=== PATIENT | female | born 1990 | race African-American/Black ===

== ENCOUNTER 2024-11-12 05:01 | Emergency (ER) | payer MEDICARE, MEDICAID ==
[~2024-11-12] VITALS: Ht 172.7 cm; Wt 80.0 kg
[2024-11-12 05:04] VITALS: BP 107/70; PULSE 100; RESP 14; TEMP 98.9; O2SAT 96
[2024-11-12] MEDS ORDERED: ACETAMINOPHEN 325MG TABLET PO ONE (05:30)
[2024-11-12] MEDS ORDERED: ONDANSETRON 4MG ODT PO ONE (05:30)
== END 2024-11-12 09:00 | disposition left against medical advice (07) ==
LOC: ER 05:01 → EDBEDREQ 06:07 → ER 09:00
DX: R19.7 Diarrhea, unspecified (principal); Z53.21 Procedure and treatment not carried out due to patient leaving prior to being seen by health care provider